=== PATIENT | female | born 1965 | race Two or more races ===

== ENCOUNTER 2016-10-11 06:00 | Inpatient (IN) | payer OTHER ==
[2016-10-10 09:07] VITALS: BMI 24.2
[2016-10-11] VITALS (30 sets, daily range): BP systolic 119–170; BP diastolic 66–86; PULSE 54–97; RESP 12–19; Ht 157.5 cm; Wt 60.4 kg
[~2016-10-11] VITALS: Ht 157.5 cm; Wt 60.4 kg
[2016-10-11] MEDS ORDERED: CEFAZOLIN 2 GM/50 ML (PMX) 50 ML IVPB ONE (06:34)
[2016-10-11] MEDS ORDERED: LACTATED RINGER'S 1,000 ML IV* SCH (06:34)
[2016-10-11] MEDS ORDERED: ROCURONIUM 50 MG INJ ONE (06:55)
[2016-10-11] MEDS ORDERED: PROPOFOL 20 ML ONE (06:55)
[2016-10-11] MEDS ORDERED: FENTAnyl 50 MCG/ML VIAL ONE (06:55)
[2016-10-11] MEDS ORDERED: SUCCINYLCHOLINE CHLORIDE 100 MG/5 ML SYG IV ONE (06:55)
[2016-10-11] MEDS ORDERED: ONDANSETRON 4 MG INJ ONE (06:56)
[2016-10-11] MEDS ORDERED: METOCLOPRAMIDE 10 MG INJ ONE (06:58)
[2016-10-11] MEDS ORDERED: CEFAZOLIN 1 GM INJ ONE (06:58)
[2016-10-11] MEDS ORDERED: LEVO88TA3 PO (07:04)
[2016-10-11] MEDS ORDERED: METF1000 PO (07:04)
[2016-10-11] MEDS ORDERED: OMEG1CAP90 PO (07:04)
[2016-10-11] MEDS ORDERED: ATOR20TA38 PO (07:04)
[2016-10-11] MEDS ORDERED: LISI10TA2 PO (07:04)
[2016-10-11] MEDS ORDERED: DEXAMETHASONE 4 MG/ML 1 ML INJ ONE (07:57)
[2016-10-11] MEDS ORDERED: MEPERIDINE 25 MG INJ IV PRN (08:30)
[2016-10-11] MEDS ORDERED: FENTAnyl 50 MCG/ML VIAL IV PRN ×2 (08:30)
[2016-10-11] MEDS ORDERED: NALOXONE (0.4 MG/ML) INJ IV PRN (08:30)
[2016-10-11] MEDS ORDERED: ONDANSETRON 4 MG INJ IV PRN (08:30)
[2016-10-11] MEDS ORDERED: LABETALOL HCL 20MG INJ IV PRN (08:30)
[2016-10-11] MEDS ORDERED: HYDROmorphONE 0.2 MG/ML PCA IV SCH (08:30)
[2016-10-11] MEDS ORDERED: HYDROCODONE/APAP (5/325) TAB PO PRN ×2 (08:30)
[2016-10-11] MEDS ORDERED: hydrALAzine 20 MG INJ IV PRN (08:30)
[2016-10-11] MEDS ORDERED: HYDROmorphONE (0.2 MG/ML) 10ML SYG IV PRN ×2 (08:30)
[2016-10-11] MEDS ORDERED: DIPHENHYDRAMINE 50 MG INJ IV PRN (08:30)
[2016-10-11] MEDS: HYDROmorphONE (0.2 MG/ML) 10ML SYG IV PRN ×3 (10:13→10:28)
[2016-10-11 11:03] LABS: ADD UMIC NO; UR ASCORBIC ACID NEGATIVE (NEGATIVE); UR BILIRUBIN (Dip) NEGATIVE (NEGATIVE); UR BLOOD (Dip) NEGATIVE (NEGATIVE); UR CLARITY CLEAR (CLEAR); UR COLOR STRAW (YELLOW); UR GLUCOSE (Dip) 1+ mg/dL (NEGATIVE); UR KETONES (Dip) NEGATIVE (NEGATIVE); UR LEUKOCYTE ESTERASE (Dip) NEGATIVE Leu/ul (NEGATIVE); UR NITRITE (Dip) NEGATIVE (NEGATIVE); UR SPECIFIC GRAVITY (Dip) 1.014 (1.003-1.030); UR TOTAL PROTEIN (Dip) NEGATIVE (NEGATIVE); UR UROBILINOGEN (Dip) NEGATIVE (NEGATIVE)
[2016-10-11] MEDS ORDERED: GLUCOSE GEL 15 GRAM TUBE PO PRN ×2 (13:30)
[2016-10-11] MEDS ORDERED: GLUCOSE GEL 15 GRAM TUBE BUCCAL PRN (13:30)
[2016-10-11] MEDS ORDERED: DEXTROSE 50% 50 ML SYRINGE IV PRN ×2 (13:30)
[2016-10-11] MEDS ORDERED: GLUCAGON 1 MG INJ IM PRN (13:30)
[2016-10-11] MEDS: ACCU-CHEK XX SCH ×2 (17:38→21:00)
[2016-10-11] MEDS: metFORMIN 500 MG TAB PO SCH (17:49)
[2016-10-11] MEDS: LACTATED RINGER'S 1,000 ML IV SCH (17:53)
[2016-10-11] MEDS ORDERED: ATORVASTATIN 20 MG TAB PO SCH (21:00)
[2016-10-12] VITALS: BP 110/55; RESP 18
[2016-10-12] MEDS: LACTATED RINGER'S 1,000 ML IV SCH ×2 (02:05→10:50)
[2016-10-12] MEDS ORDERED: LEVOTHYROXINE 88 MCG TAB PO SCH (07:00)
[2016-10-12] MEDS ORDERED: HYDROmorphONE 0.2 MG/ML PCA IV SCH (07:19)
[2016-10-12] MEDS: ACCU-CHEK XX SCH ×3 (07:20→17:29)
[2016-10-12 08:30] VITALS: BP 108/59; RESP 20
[2016-10-12] MEDS: metFORMIN 500 MG TAB PO SCH ×2 (08:31→17:39)
[2016-10-12] MEDS ORDERED: LISINOPRIL 10 MG TAB PO SCH (09:00)
[2016-10-12 14:47] LABS: ADD UMIC NO; UR ASCORBIC ACID NEGATIVE (NEGATIVE); UR BILIRUBIN (Dip) NEGATIVE (NEGATIVE); UR BLOOD (Dip) NEGATIVE (NEGATIVE); UR CLARITY CLEAR (CLEAR); UR COLOR COLORLESS (YELLOW); UR GLUCOSE (Dip) 1+ mg/dL (NEGATIVE); UR KETONES (Dip) NEGATIVE (NEGATIVE); UR LEUKOCYTE ESTERASE (Dip) NEGATIVE Leu/ul (NEGATIVE); UR NITRITE (Dip) NEGATIVE (NEGATIVE); UR SPECIFIC GRAVITY (Dip) 1.002 (1.003-1.030); UR TOTAL PROTEIN (Dip) NEGATIVE (NEGATIVE); UR UROBILINOGEN (Dip) NEGATIVE (NEGATIVE)
--- NOTE | 2016-10-12 17:07 | HP ---
Date/Time of Note Date/Time of Note DATE: 10/12/16 TIME: 16:54 Assessment/Plan VTE Prophylaxis VTE Prophylaxis Intervention: ambulation, anti-embolic stocking Lines/Catheters IV Catheter Type (from Nrs): Peripheral IV Assessment/Plan Chief Complaint/Hosp Course left adnexal mass plan exploratory laparotomy left ovarian cystectomy poss BSO Problems: HPI/ROS Admit Date/Time Admit Date/Time Oct 11, 2016 at 06:00 Hx of Present Illness 50y.o who menopaused for 2yrs was seen first in dec 2015 discovered cystic mass on left adnexa per U/S which was anurag 7cm and septated CA125 very low metabolic panel was wnl admitted for exploratory laparotomy left ovarian cystectomy poss BSO which willbe done only ovary cannot be saved,since patient requested to save ovaries. ROS unremarkable Constitutional: improved, no complaints Genitourinary: bleeding, other (left pelvic pain) PMH/Family/Social Past Medical History Medical History: no pertinent history Past Surgical History Past Surgical Hx: other ( section) Family History Significant Family History: no pertinent family hx Social History Alcohol Use: none Smoking Status: Never smoker Drug Use: none Exam/Review of Systems Vital Signs Vitals Vital Signs Date Time Temp Pulse Resp B/P Pulse Ox O2 Delivery O2 Flow Rate FiO2 10/12/16 09:00 17 10/12/16 08:30 98.9 61 108/59 99 10/11/16 18:15 Nasal Cannula 2.0 Intake and Output 10/11/16 10/11/16 10/12/16 15:00 23:00 07:00 Intake Total 800 ml 800 ml 750 ml Output Total 295 ml 300 ml 2400 ml Balance 505 ml 500 ml -1650 ml Exam Eyes: EOMI, PERRL, nl conjunctiva, nl lids, nl sclera ENMT: nl external ears & nose, nl lips & teeth, nl nasal mucosa & septum Neck: non-tender, supple Respiratory: clear to auscultation, normal air movement Cardiovascular: nl pulses, regular rate and rhythm Gastrointestinal: nl liver, spleen, non-tender, soft Genitourinary - Female: CMT, CVA tenderness, nl adnexae (left adnexal mass), nl external genitalia, other, uterus Medications Medications Current Medications Naloxone HCl (Narcan) 0.2 mg PRN PRN IV DECREASED REPIRATORY RATE; Start at 08:30 Acetaminophen/ Hydrocodone Bitart ([place] (5/325)) 1 tab Q4H PRN PO PAIN LEVEL 1 -5; Start 10/11/16 at 08:30; Status Future hold Acetaminophen/ Hydrocodone Bitart ([place] (5/325)) 2 tab Q4H PRN PO PAIN LEVEL 6 -10; Start 10/11/16 at 08:30; Status Future hold Diphenhydramine HCl (Benadryl) 25 mg Q6H PRN IV ITCHING; Start 10/11/16 at 08: 30 Atorvastatin Calcium (Lipitor) 20 mg QHS PO Last administered on 10/11/16 21: 16; Admin Dose 20 MG; Start 10/11/16 at 21:00 Lisinopril (Zestril) 10 mg DAILY PO Last administered on 10/12/16 08:32; Admin Dose 10 MG; Start 10/12/16 at 09:00 Miscellaneous Information 1 ea NOTE XX ; Start 10/11/16 at 13:30 Glucose (Glutose) 15 gm Q15M PRN PO DECREASED GLUCOSE; Start 10/11/16 at 13:30 Glucose (Glutose) 22.5 gm Q15M PRN PO DECREASED GLUCOSE; Start 10/11/16 at 13: 30 Dextrose (D50w Syringe) 25 ml Q15M PRN IV DECREASED GLUCOSE; Start 10/11/16 at 13:30 Dextrose (D50w Syringe) 50 ml Q15M PRN IV DECREASED GLUCOSE; Start 10/11/16 at 13:30 Glucagon (Glucagen) 1 mg Q15M PRN IM DECREASED GLUCOSE; Start 10/11/16 at 13:30 Glucose (Glutose) 15 gm Q15M PRN BUCCAL DECREASED GLUCOSE; Start 10/11/16 at 13 :30 MARCELINA RAJAN MD Oct 12, 2016 17:06
--- NOTE | 2016-10-12 17:11 | PN ---
Date/Time of Note Date/Time of Note DATE: 10/12/16 TIME: 17:07 Assessment/Plan Lines/Catheters IV Catheter Type (from [facility]): Peripheral IV Assessment/Plan Chief Complaint/Hosp Course left adnexal mass plan exploratory laparotomy left ovarian cystectomy poss BSO Problems: Assessment/Plan s/p BSO plan discharge home today will be f/u at dr diego office for f/u for sertoli-leydig intermediate tumor Subjective 24 Hr Interval Summary tolerating diet well passing flatus Exam/Review of Systems Vital Signs Vitals Vital Signs Date Time Temp Pulse Resp B/P Pulse Ox O2 Delivery O2 Flow Rate FiO2 10/12/16 09:00 17 10/12/16 08:30 98.9 61 108/59 99 10/11/16 18:15 Nasal Cannula 2.0 Intake and Output 10/11/16 10/11/16 10/12/16 15:00 23:00 07:00 Intake Total 800 ml 800 ml 750 ml Output Total 295 ml 300 ml 2400 ml Balance 505 ml 500 ml -1650 ml Exam Free Text/Dictation vss afebrile abdomen soft wound dry calf neg Constitutional: alert, oriented, well developed Psych: nl mood/affect, no complaints Head: atraumatic, normocephalic Eyes: EOMI, nl conjunctiva, nl lids, nl sclera ENMT: mucosa pink and moist, nl external ears & nose, nl lips & teeth, nl nasal mucosa & septum Neck: non-tender, supple Respiratory: clear to auscultation, normal air movement Cardiovascular: nl pulses, regular rate and rhythm Gastrointestinal: nl liver, spleen, non-tender, soft Musculoskeletal: nl extremities to inspection, nl gait and stance Extremities: normal pulses Neurological: BUILDING CONSULTANT II-XII intact, nl mental status, nl speech, nl strength Skin: nl turgor, rash or lesions Lymph: nl lymph nodes MARCELINA RAJAN MD Oct 12, 2016 17:11
--- NOTE | 2016-10-12 17:14 | DS ---
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 Hospital Course left adnexal mass plan exploratory laparotomy left ovarian cystectomy poss BSO Home Meds Reported Medications Atorvastatin Calcium* (Atorvastatin Calcium*) 20 Mg Tablet, 20 MG PO QHS, #30 TAB 10/11/16 Levothyroxine Sodium* (Levothyroxine Sodium*) 88 Mcg Tablet, 88 MCG PO BEFORE BREAKFAST, #30 TAB 10/11/16 Lisinopril* (Lisinopril*) 10 Mg Tablet, 10 MG PO DAILY, #30 TAB 10/11/16 [place]-3 Fatty Acids/Fish Oil ([place] 3 1,000 mg Softgel) 1 Each Capsule, 1 EACH PO BID, CAP 10/11/16 Metformin Hcl* (Metformin Hcl*) 1,000 Mg Tablet, 1000 MG PO WITH BREAKFAST DINNE , #30 TAB 10/11/16 Follow-up Plan 2weeks at my office and will be f/u with oncologist Primary Care Provider Not On Staff Doctor Time spent on discharge: < 30 minutes Pending Labs Laboratory Tests Test 10/11/16 17:30 10/11/16 21:17 10/12/16 05:36 10/12/16 08:30 Bedside Glucose 185mg/dL (70-220) 151mg/dL (70-220) 113mg/dL (70-220) Lab Scanned Report [id number] Test 10/12/16 12:35 10/12/16 14:00 Bedside Glucose 118mg/dL (70-220) Urine Color COLORLESS (YELLOW) Urine Clarity CLEAR (CLEAR) Urine pH 7.0 (5.0-9.0) Urine Specific [place] 1.002 (1.003-1.030) Urine Ketones NEGATIVEmg/dL (NEGATIVE) Urine Nitrite NEGATIVEmg/dL (NEGATIVE) Urine Bilirubin NEGATIVEmg/dL (NEGATIVE) Urine Urobilinogen NEGATIVEmg/dL (NEGATIVE) Urine Leukocyte Esterase NEGATIVELeu/ul (NEGATIVE) Urine Hemoglobin NEGATIVEmg/dL (NEGATIVE) Urine Glucose 1+mg/dL (NEGATIVE) Urine Total Protein NEGATIVEmg/dl (NEGATIVE) MARCELINA RAJAN MD Oct 12, 2016 17:14
--- NOTE | 2016-10-12 17:17 | PD.PPDC ---
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 Condition Patient Condition: Stable Diet Diet: Resume Regular Diet Activity/Restrictions Activity: May be up for meals Restrictions: No Exercising No Lifting No Driving Minimize Stair-climbing No Sexual Activity Wound/Drain Care Instructions Wound/Drain Care Instructions: Wash with soap and water Keep clean and dry Follow-up Follow-up with Physician: 2, Week/Weeks Return to clinic for DATA QUALITY CONSULTANT Instructions: Fever greater than 101 Chills Worsening abdominal pain Excessive Vaginal Bleeding More than 2 pads per hour Unable to tolerate diet Surgical Instructions: Incisional Drainage Incisional Redness MARCELINA RAJAN MD Oct 12, 2016 17:17
--- NOTE | 2016-10-15 10:16 | OPR ---
DATE OF OPERATION: 10/11/2016 PREOPERATIVE DIAGNOSIS: Left ovarian cyst. POSTOPERATIVE DIAGNOSIS: Possible malignancy, tumor by pathologist who had the frozen section, which was not certain but there is a possibility. ANESTHESIA: General ANESTHESIOLOGIST: Danny Barney MD SURGEON: Alka Mckeon MD GRANITE SANDBLASTER APPRENTICE: Jamir Garcia MD ESTIMATED BLOOD LOSS: Less than 50 mL OPERATIVE PROCEDURE: Under appropriate induction of general anesthesia, the patient was placed in the prone position. Del Angel catheter was introduced under sterile conditions. She was repositioned to supine. Abdominal wall was prepped and draped in the usual aseptic manner. Incision was made through the incisional scar and carried down through the subcutaneous tissue to the anterior rectus fascia which was incised transversely the length of the incision. The fascial floor was created by sharp and blunt dissection of tendinous attachment, upward and downward. Two rectus muscles split in the midline. Peritoneal cavity was entered digitally. The pelvic organs were explored. The left adnexal mass, which measured approximately 7 cm in diameter, was run down to the pelvic cavity. The right ovary was small and the left tube was normal. Instead of putting the retractor, left ovarian structure was pulled out through the incision. Overlying tissue was incised superficially. With Allis clamp on each side, cystic structure was enucleated from the ovarian tissue without rupturing. Prior to the cyst enucleation, the whole cystic wall was smooth. There was no excrescence. There was no sign of suspicion of the malignancy. During the enucleation, the cystic structure was more likely semi- solid, and there were some granules noted. It was not fluid- contained cystic mass. It was more likely soft tissue, more than fluid. There was no fluid. It was not muscular but it was between the consistency of like a blood clot. This cystic mass was enucleated completely and call for the frozen section. The pathologist, Dr. Espinosa, came into the OR and took the mass for further exam. While we were waiting for the frozen section, we decided to save the ovaries, which was requested by the patient many times, unless there was some abnormal issue. With the left ovarian cyst out, we decided to do bilateral salpingectomy to prevent further ovarian malignancy in the future. The left-sided ovarian area was repaired on the defect after the hilum was separately sutured for the bleeder. The defect was closed by using 2-0 chromic catgut in horizontal mattress manner. No bleeding noted. One piece of Interceed to prevent the adhesions. The right fallopian tube and ovary were exposed. The ovary was very small and normal looking. This time, we decided to remove the right distal portion of the fallopian tube for the prevention of the ovarian malignancy in the future. The right distal portion of the fallopian tube was doubly clamped with pean. This was excised. The pedicle was closed with 0-chromic catgut in Leonard manner. The left fallopian tube also was excised in the same manner. The pedicle was ligated with 0-chromic catgut. No bleeders were noted. The waiting period of the frozen section was much longer than the usual time which came reported as a strong possibility of dysgerminoma or tumor. At this point, instead of just doing the cystectomy and the bilateral salpingectomy, we decided to do bilateral salpingo-oophorectomy. The right side adnexa was removed by putting the pean on the left infundibulopelvic ligament and clamped. The ovary and the proximal portion of the tube were removed. Pedicle was closed with 0-chromic catgut in Leonard manner, which was doubly ligated. The same procedure was done on the left ovarian tube. The left infundibulopelvic ligament was doubly clamped, and adnexa on the left side was removed. Pedicle was closed with 0-chromic catgut in Leonard manner which was doubly ligated. No bleeding noted. The procedure was completed. Irrigation was done. Sponge count was correct. The parietal peritoneum was closed with 0-chromic catgut in continuous manner. The muscle was closed with 0- chromic catgut in continuous manner. The fascia was closed with number 1 Vicryl in continuous manner in one segment. Subcutaneous tissue was irrigated. This layer was approximated with 2-0 plain in continuous manner. Skin closed with 3-0 Monocryl in subcuticular manner. Pressure dressing applied. The patient withstood the procedure well and was sent to the recovery room in stable condition. ESTIMATED BLOOD LOSS: Approximately 50 mL ADDENDUM: After the pathologist's report to possible dysgerminoma, tumor, and Dr. Pitt was consulted and decided to the report of the frozen section result which was not available right away and will be informed in the morning, and decision what to do as far as staging is concerned, and most likely through laparoscopic exam if this is of clear cell origin. If tumor, then less likely staging will be done according to Dr. Pitt. We will be discussing the further evaluation and procedure according to the pathology report in the morning. Dictated By: Alka Mckeon MD /moris/naren /Document#: [id number]
== END 2016-10-12 19:00 | disposition home or self-care (01) | DRG 743 ==
LOC: REC 06:00 → MS1 11:56
PROVIDERS: ADMIT Obstetrics & Gynecology; ATTEND Obstetrics & Gynecology
PROC: 0UT70ZZ Resection of Bilateral Fallopian Tubes, Open Approach (ICD-10-PCS; 2016-10-11)
PROC: 0UT20ZZ Resection of Bilateral Ovaries, Open Approach (ICD-10-PCS; 2016-10-11)
PROC: 0UB20ZZ Excision of Bilateral Ovaries, Open Approach (ICD-10-PCS; principal; 2016-10-11 07:30)
DX: D27.1 Benign neoplasm of left ovary (principal); I10 Essential (primary) hypertension; N83.8 Other noninflammatory disorders of ovary, fallopian tube and broad ligament; E03.9 Hypothyroidism, unspecified; E11.9 Type 2 diabetes mellitus without complications; E78.5 Hyperlipidemia, unspecified; Z79.84 Long term (current) use of oral hypoglycemic drugs
CPT/HCPCS: 81003; 82962; 84703; 86850; 86900; 86901; 86920; 87086; 88302; 88305; 88313; 88331; J0360; J0690; J1100; J1170; J2175; J2405; J2765; J3010; J7120; J7999

== ENCOUNTER 2017-06-06 07:30 | Day surgery (SDC) | END 2017-06-06 14:08 | disposition home or self-care (01) ==